=== PATIENT | female | born 1935 | race Caucasian/White ===

== ENCOUNTER 2017-05-05 08:12 | Observation (INO) | payer OTHER ==
[~2017-05-05] VITALS: Ht 160 cm; Wt 59.5 kg
[~2017-05-05 08:12] MED LIST: AMLODIPINE BESYL5 MG PO; CLINORIL200 MG PO; CLONIDINE HCL0.2 MG PO; GLUCOPHAGE500 MG PO; MONOPRIL40 MG PO; NEXIUM40 MG PO; NOVOLOG MI100 UNIT/2 SC; PRAVACHOL40 MG PO; SULINDAC200 MG PO; TYLENOL SO167 MG/5 M PO; XANAX0.25 MG PO; ZOFRAN ODT4 MG PO
[2017-05-05 09:15] LABS: HEMATOCRIT 38.1 % (36.0-46.0); MCH 31.3 PG (29.0-34.0); MCHC 34.6 G/DL (30.0-36.0); MCV 90.3 FL (83-99); MEAN PLAT.VOLUME 9.3 uM^3 (9.5-12.4); PLATELET COUNT 200 K/uL (156-360); RBC DIS.WIDTH-CV 12.9 % (11.8-14.6); RBC DIS.WIDTH-SD 42.4 % (39-53); RED BLOOD COUNT 4.22 M/uL (3.80-5.20)
[2017-05-05 09:27] LABS: CHLORIDE 106 mEq/L (99-109); POTASSIUM 4.1 mEq/L (3.7-5.4); SODIUM 137 mEq/L (136-147)
[2017-05-05 09:29] LABS: GLUCOSE 193 mg/dL (70-99)
[2017-05-05 09:30] LABS: ANION GAP 8 MEQ/L (2-14)
[2017-05-05 09:31] LABS: TOTAL BILIRUBIN 0.7 mg/dL (0.0-1.0)
[2017-05-05 09:32] LABS: ALKALINE PHOSPHATASE 92 IU/L (3-129)
[2017-05-05 09:33] LABS: GFR ESTIMATE (CALCULATED) 45 mL/min/
[2017-05-05 09:34] LABS: UREA NITROGEN (BUN) 21 mg/dL (9-23)
[2017-05-05 09:36] LABS: LIPASE 14 U/L (1.0-51.0)
[2017-05-05 12:27] LABS: ADD MIUA? NO; BILIRUBIN NEGATIVE; BLOOD NEGATIVE; COLOR YELLOW ((YELLOW)); GLUCOSE (STRIP) NEGATIVE; KETONES 20; LEUKOCYTES NEGATIVE; NITRITE NEGATIVE; PROTEIN (STRIP) NEGATIVE; SPECIFIC GRAVITY 1.009 (1.000-1.030); UCUL ADDED? NO; UROBILINOGEN 0.2 MG/DL (0.2-1.0)
[2017-05-05] MEDS ORDERED: ZOFRAN ODT4 MG PO (13:07)
[2017-05-05 15:54] LABS: POINT-OF-CARE METER ID UU13113747
[2017-05-05 19:44] VITALS: BP 187/76
== END 2017-05-05 19:30 | disposition left against medical advice (07) ==
LOC: EME 08:12 → EDOF 16:55 → ENRESERV 16:56 → EDOF 19:30
PROVIDERS: Nurse Practitioner Family
DX: R11.2 Nausea with vomiting, unspecified (principal); K44.9 Diaphragmatic hernia without obstruction or gangrene; E11.9 Type 2 diabetes mellitus without complications; Z79.4 Long term (current) use of insulin; I10 Essential (primary) hypertension; E78.5 Hyperlipidemia, unspecified; M81.0 Age-related osteoporosis without current pathological fracture; K22.2 Esophageal obstruction; F41.9 Anxiety disorder, unspecified; Z87.891 Personal history of nicotine dependence; Z60.2 Problems related to living alone; Z80.3 Family history of malignant neoplasm of breast; Z83.3 Family history of diabetes mellitus
CPT/HCPCS: 74177; 80053; 81003; 82948; 83690; 85027; G0378; J0360; J2405; J2765; J7030

== ENCOUNTER 2017-08-13 07:43 | Observation (INO) | payer OTHER ==
[~2017-08-13] VITALS: Ht 162.6 cm; Wt 56.5 kg
[2017-08-13 08:24] LABS: HEMATOCRIT 42.8 % (36.0-46.0); HEMOGLOBIN 14.8 G/DL (11.9-15.5); MCH 31.3 PG (29.0-34.0); MCHC 34.6 G/DL (30.0-36.0); MCV 90.5 FL (83-99); PLATELET COUNT 234 K/uL (156-360); RBC DIS.WIDTH-SD 42.4 % (39-53); RED BLOOD COUNT 4.73 M/uL (3.80-5.20); WHITE BLOOD COUNT 5.9 K/uL (4.1-10.2)
[2017-08-13 08:35] LABS: CHLORIDE 106 mEq/L (99-109); POTASSIUM 4.2 mEq/L (3.7-5.4); SODIUM 141 mEq/L (136-147)
[2017-08-13 08:36] LABS: GLUCOSE 177 mg/dL (70-99)
[2017-08-13 08:40] LABS: CREATININE 1.3 mg/dL (0.6-1.3); GFR ESTIMATE (CALCULATED) 41 mL/min/
[2017-08-13 08:41] LABS: UREA NITROGEN (BUN) 27 mg/dL (9-23)
[2017-08-13 10:13] LABS: ALBUMIN 4.2 g/dL (3.2-4.8)
[2017-08-13 10:16] LABS: TOTAL PROTEIN 7.1 g/dL (6.4-8.3)
[2017-08-13 10:18] LABS: TOTAL BILIRUBIN 0.8 mg/dL (0.0-1.0)
[2017-08-13 10:19] LABS: ALKALINE PHOSPHATASE 106 IU/L (3-129)
[2017-08-13 10:21] LABS: AST (GOT) 13 IU/L (2-34); DIRECT BILIRUBIN 0.3 mg/dL (0.0-0.3)
[2017-08-13 10:22] LABS: ALT (GPT) 10 IU/L (3-49); LIPASE 16 U/L (1.0-51.0)
[2017-08-13 10:28] LABS: TROP-I INTERPRETATION NEGATIVE; TROPONIN-I < 0.01 ng/mL (0.0-0.30)
[2017-08-13 10:29] LABS: APPEARANCE SL.HAZY ((CLEAR)); BILIRUBIN NEGATIVE; BLOOD SMALL; COLOR YELLOW ((YELLOW)); GLUCOSE (STRIP) 50; KETONES 80; LEUKOCYTES NEGATIVE; NITRITE NEGATIVE; PROTEIN (STRIP) >=500; SPECIFIC GRAVITY 1.022 (1.000-1.030); UROBILINOGEN 0.2 MG/DL (0.2-1.0)
[2017-08-13 10:33] LABS: BACTERIA RARE /HPF; EPITHELIAL CELLS 1+ /HPF; HYALINE CASTS 0-5 /LPF; MUCUS TRACE /LPF; RED BLOOD CELLS 0-5 /HPF (0-5); UCUL ADDED? NO; WHITE BLOOD CELLS 0-5 /HPF (0-5)
[2017-08-13] MEDS ORDERED: SULINDAC200 MG PO (14:53)
[2017-08-13 15:40] VITALS: BP 210/98
[2017-08-13 16:34] VITALS: BP 237/101
[2017-08-13 18:47] VITALS: BP 184/93
[2017-08-13 20:18] VITALS: BP 190/84
[2017-08-13 23:54] VITALS: BP 134/60
[2017-08-14] VITALS (7 sets, daily range): BP systolic 134–186; BP diastolic 58–81
[2017-08-14 06:19] LABS: INTER. NORMALIZED RATIO 1.1
[2017-08-14 06:50] LABS: CHLORIDE 106 MEQ/L (99-109); CREATININE 1.1 MG/DL (0.6-1.3); GFR ESTIMATE (CALCULATED) 50 mL/min/; GLUCOSE 145 mg/dL (70-99); SODIUM 137 MEQ/L (136-147); UREA NITROGEN (BUN) 27 mg/dL (9-23)
[2017-08-15 06:57] VITALS: BP 107/59
[2017-08-15 07:00] VITALS: BP 160/75
[2017-08-15 11:47] VITALS: BP 171/74
== END 2017-08-15 15:14 | disposition home or self-care (01) ==
LOC: EME 07:43 → EDOF 12:53 → 5WEST 12:53 → ENRESERV 12:54 → 5WEST 15:10 → ENPENDDIS 08-15 → 5WEST 08-15 15:14
PROVIDERS: Internal Medicine; Internal Medicine Gastroenterology
PROC: 0DC38ZZ Extirpation of Matter from Lower Esophagus, Via Natural or Artificial Opening Endoscopic (ICD-10-PCS; principal; 2017-08-14)
DX: T18.128A Food in esophagus causing other injury, initial encounter (principal); K22.2 Esophageal obstruction; K44.9 Diaphragmatic hernia without obstruction or gangrene; K21.9 Gastro-esophageal reflux disease without esophagitis; E11.9 Type 2 diabetes mellitus without complications; I10 Essential (primary) hypertension; E78.5 Hyperlipidemia, unspecified; M81.0 Age-related osteoporosis without current pathological fracture; Z80.3 Family history of malignant neoplasm of breast; Z83.3 Family history of diabetes mellitus; Z79.4 Long term (current) use of insulin
CPT/HCPCS: 80048; 80076; 81003; 82948; 83690; 84484; 85027; 85610; 93005; 99281; 99285; C9113; G0378; J0330; J0360; J1650; J1815; J2405; J2765; J7030

== ENCOUNTER 2017-12-02 13:45 | Inpatient (IN) | payer OTHER ==
[~2017-12-02] VITALS: Ht 162.6 cm; Wt 63.5 kg
[2017-12-02 14:23] LABS: BASOPHIL (%) 0.2 % (0-1); EOSINOPHIL (%) 0.1 % (0-5); HEMATOCRIT 37.2 % (36.0-46.0); IMMATURE GRANULOCYTE (%) 0.5 % (0.0-0.7); LYMPHOCYTE (%) 5.8 % (15-42); LYMPHOCYTE COUNT 0.8 K/uL (1.0-2.8); MCH 30.7 PG (29.0-34.0); MCHC 34.9 G/DL (30.0-36.0); MCV 87.9 FL (83-99); MONOCYTE (%) 6.3 % (3-12); MONOCYTE COUNT 0.9 K/uL (0-0.8); NEUTROPHIL (%) 87.1 % (45-76); PLATELET COUNT 224 K/uL (156-360); RBC DIS.WIDTH-CV 12.7 % (11.8-14.6); RBC DIS.WIDTH-SD 40.9 % (39-53); RED BLOOD COUNT 4.23 M/uL (3.80-5.20); WHITE BLOOD COUNT 13.7 K/uL (4.1-10.2)
[2017-12-02 14:32] LABS: CHLORIDE 105 mEq/L (99-109); POTASSIUM 4.2 mEq/L (3.7-5.4); SODIUM 139 mEq/L (136-147)
[2017-12-02 14:34] LABS: GLUCOSE 148 mg/dL (70-99)
[2017-12-02 14:37] LABS: CREATININE 1.2 mg/dL (0.6-1.3); GFR ESTIMATE (CALCULATED) 45 mL/min/
[2017-12-02 14:38] LABS: UREA NITROGEN (BUN) 23 mg/dL (9-23)
[2017-12-02 14:44] LABS: TROP-I INTERPRETATION NEGATIVE; TROPONIN-I < 0.01 ng/mL (0.0-0.30)
[2017-12-02 22:09] LABS: APPEARANCE CLEAR ((CLEAR)); BILIRUBIN NEGATIVE; BLOOD MODERATE; COLOR YELLOW ((YELLOW)); GLUCOSE (STRIP) 50; KETONES 20; LEUKOCYTES NEGATIVE; NITRITE NEGATIVE; PROTEIN (STRIP) 30; SPECIFIC GRAVITY 1.015 (1.000-1.030); UROBILINOGEN 0.2 MG/DL (0.2-1.0)
[2017-12-02 22:16] LABS: BACTERIA RARE /HPF; EPITHELIAL CELLS RARE /HPF; MUCUS TRACE /LPF; UCUL ADDED? NO; WHITE BLOOD CELLS 0-5 /HPF (0-5)
[2017-12-03] VITALS (9 sets, daily range): BP systolic 130–225; BP diastolic 65–96
[2017-12-03 07:09] LABS: HEMATOCRIT 31.3 % (36.0-46.0); MCHC 33.9 G/DL (30.0-36.0); MCV 88.7 FL (83-99); PLATELET COUNT 176 K/uL (156-360); RBC DIS.WIDTH-CV 12.6 % (11.8-14.6); RED BLOOD COUNT 3.53 M/uL (3.80-5.20); WHITE BLOOD COUNT 6.2 K/uL (4.1-10.2)
[2017-12-03 07:14] LABS: HEMOGLOBIN 10.6 G/DL (11.9-15.5)
[2017-12-03 07:16] LABS: CHLORIDE 97 MEQ/L (99-109); GFR ESTIMATE (CALCULATED) 56 mL/min/; POTASSIUM 4.7 MEQ/L (3.7-5.4); UREA NITROGEN (BUN) 20 mg/dL (9-23)
[2017-12-03 07:21] LABS: GLUCOSE 238 mg/dL (70-99); SODIUM 129 MEQ/L (136-147)
[2017-12-04 03:35] VITALS: BP 155/85
[2017-12-04 06:51] LABS: HEMATOCRIT 26.5 % (36.0-46.0); HEMOGLOBIN 9.1 G/DL (11.9-15.5); MCH 30.5 PG (29.0-34.0); MCHC 34.3 G/DL (30.0-36.0); MCV 88.9 FL (83-99); PLATELET COUNT 179 K/uL (156-360); RBC DIS.WIDTH-CV 12.7 % (11.8-14.6); RBC DIS.WIDTH-SD 40.9 % (39-53); RED BLOOD COUNT 2.98 M/uL (3.80-5.20); WHITE BLOOD COUNT 8.9 K/uL (4.1-10.2)
[2017-12-04 07:17] LABS: CHLORIDE 99 MEQ/L (99-109); CREATININE 1.2 MG/DL (0.6-1.3); GFR ESTIMATE (CALCULATED) 45 mL/min/; GLUCOSE 249 mg/dL (70-99); POTASSIUM 5.2 MEQ/L (3.7-5.4); SODIUM 134 MEQ/L (136-147); UREA NITROGEN (BUN) 25 mg/dL (9-23)
[2017-12-04 07:43] VITALS: BP 150/74
[2017-12-04 11:35] VITALS: BP 153/67
[2017-12-04 15:46] VITALS: BP 149/65
[2017-12-04 19:26] VITALS: BP 151/65
[2017-12-04 23:33] VITALS: BP 157/68
[2017-12-05] VITALS (12 sets, daily range): BP systolic 119–176; BP diastolic 49–76
[2017-12-05 06:15] LABS: HEMATOCRIT 19.7 % (36.0-46.0); MCH 30.3 PG (29.0-34.0); MCV 89.1 FL (83-99); PLATELET COUNT 138 K/uL (156-360); RBC DIS.WIDTH-SD 41.8 % (39-53); WHITE BLOOD COUNT 8.1 K/uL (4.1-10.2)
[2017-12-05 06:20] LABS: HEMOGLOBIN 6.7 G/DL (11.9-15.5); RED BLOOD COUNT 2.21 M/uL (3.80-5.20)
[2017-12-05 07:37] LABS: CHLORIDE 101 MEQ/L (99-109); CREATININE 1.3 MG/DL (0.6-1.3); GFR ESTIMATE (CALCULATED) 41 mL/min/; GLUCOSE 163 mg/dL (70-99); SODIUM 133 MEQ/L (136-147); UREA NITROGEN (BUN) 32 mg/dL (9-23)
[2017-12-05 19:12] LABS: STOOL OCCULT BLD 1ST SPECIMEN NEGATIVE
[2017-12-05 20:37] LABS: HEMATOCRIT 27.5 % (36.0-46.0); MCV 85.7 FL (83-99)
[2017-12-05 20:39] LABS: HEMOGLOBIN 9.7 G/DL (11.9-15.5)
[2017-12-06 04:34] VITALS: BP 163/75; BP 173/75
[2017-12-06 06:40] LABS: BASOPHIL (%) 0.1 % (0-1); EOSINOPHIL (%) 0.4 % (0-5); HEMATOCRIT 28.1 % (36.0-46.0); HEMOGLOBIN 9.8 G/DL (11.9-15.5); IMMATURE GRANULOCYTE (%) 0.3 % (0.0-0.7); LYMPHOCYTE (%) 7.4 % (15-42); LYMPHOCYTE COUNT 0.5 K/uL (1.0-2.8); MCH 29.6 PG (29.0-34.0); MCHC 34.9 G/DL (30.0-36.0); MCV 84.9 FL (83-99); MONOCYTE COUNT 0.8 K/uL (0-0.8); NEUTROPHIL (%) 80.8 % (45-76); NEUTROPHIL COUNT 5.7 K/uL (1.8-6.4); NRBC (%) 0.3 /100 WBC (0-0); PLATELET COUNT 129 K/uL (156-360); RBC DIS.WIDTH-CV 14.5 % (11.8-14.6); RBC DIS.WIDTH-SD 44.6 % (39-53)
[2017-12-06 06:48] LABS: RED BLOOD COUNT 3.31 M/uL (3.80-5.20)
[2017-12-06 08:24] LABS: CHLORIDE 99 MEQ/L (99-109); GFR ESTIMATE (CALCULATED) 56 mL/min/; GLUCOSE 185 mg/dL (70-99); POTASSIUM 4.5 MEQ/L (3.7-5.4); SODIUM 131 MEQ/L (136-147); UREA NITROGEN (BUN) 26 mg/dL (9-23)
[2017-12-06 09:02] LABS: TROP-I INTERPRETATION NEGATIVE; TROPONIN-I < 0.01 ng/mL (0.0-0.30)
[2017-12-06 09:23] VITALS: BP 206/88
[2017-12-06 12:19] VITALS: BP 177/74
[2017-12-06 13:13] VITALS: BP 144/68
[2017-12-06 14:14] LABS: TROP-I INTERPRETATION NEGATIVE; TROPONIN-I < 0.01 ng/mL (0.0-0.30)
[2017-12-06 16:38] VITALS: BP 194/75
[2017-12-06 20:23] LABS: TROP-I INTERPRETATION NEGATIVE; TROPONIN-I 0.01 ng/mL (0.0-0.30)
[2017-12-07 06:18] LABS: BASOPHIL (%) 0.1 % (0-1); EOSINOPHIL (%) 0.7 % (0-5); EOSINOPHIL COUNT 0.1 K/uL (0-0.3); HEMATOCRIT 27.8 % (36.0-46.0); HEMOGLOBIN 9.6 G/DL (11.9-15.5); IMMATURE GRANULOCYTE (%) 0.7 % (0.0-0.7); LYMPHOCYTE (%) 6.3 % (15-42); LYMPHOCYTE COUNT 0.4 K/uL (1.0-2.8); MCH 29.6 PG (29.0-34.0); MCHC 34.5 G/DL (30.0-36.0); MCV 85.8 FL (83-99); MONOCYTE (%) 10.6 % (3-12); MONOCYTE COUNT 0.7 K/uL (0-0.8); NEUTROPHIL (%) 81.6 % (45-76); NEUTROPHIL COUNT 5.7 K/uL (1.8-6.4); PLATELET COUNT 144 K/uL (156-360); RBC DIS.WIDTH-CV 14.2 % (11.8-14.6); RED BLOOD COUNT 3.24 M/uL (3.80-5.20)
[2017-12-07 07:35] VITALS: BP 187/90
[2017-12-07 09:14] VITALS: BP 138/78
[2017-12-07 11:13] VITALS: BP 165/69
[2017-12-07 16:12] VITALS: BP 147/72
[2017-12-07 19:44] VITALS: BP 183/78
[2017-12-07 23:22] VITALS: BP 111/53
[2017-12-08 03:51] VITALS: BP 140/66
[2017-12-08 07:31] VITALS: BP 159/78
[2017-12-08 07:32] LABS: TROP-I INTERPRETATION NEGATIVE; TROPONIN-I 0.01 ng/mL (0.0-0.30)
[2017-12-08 08:29] VITALS: BP 192/79
[2017-12-08 09:25] VITALS: BP 157/69
[2017-12-08 11:40] VITALS: BP 146/67
[2017-12-08] MEDS ORDERED: CLONIDINE HCL0.2 MG PO (14:18)
[2017-12-08] MEDS ORDERED: LOPRESSOR50 MG PO (14:19)
[2017-12-08] MEDS ORDERED: BISACODYL5 MG PO (14:23)
[2017-12-08] MEDS ORDERED: DOCUSATE SODIU100 MG PO (14:23)
[2017-12-08] MEDS ORDERED: TRAMADOL HCL50 MG PO (14:24)
[2017-12-08] MEDS ORDERED: OXYCODONE HCL5 MG PO (14:24)
[2017-12-08] MEDS ORDERED: LOVENOX40 MG/0.4 SC (14:27)
[2017-12-08] MEDS ORDERED: ASPIR-TRIN325 M1 PO (14:31)
== END 2017-12-08 16:37 | DRG 481 ==
LOC: EME 13:45 → EDOF 21:28 → 3EAST 21:28 → ENRESERV 21:32 → 3EAST 12-03 00:35
PROVIDERS: Emergency Medicine; Hospitalist; Internal Medicine; Orthopaedic Surgery; Student in an Organized Health Care Education/Training Program
PROC: 0QS734Z Reposition Left Upper Femur with Internal Fixation Device, Percutaneous Approach (ICD-10-PCS; principal; 2017-12-03)
PROC: 30233N1 Transfusion of Nonautologous Red Blood Cells into Peripheral Vein, Percutaneous Approach (ICD-10-PCS; 2017-12-05)
DX: S72.142A Displaced intertrochanteric fracture of left femur, initial encounter for closed fracture (principal); E87.2 Acidosis; D62 Acute posthemorrhagic anemia; I27.20 Pulmonary hypertension, unspecified; E11.9 Type 2 diabetes mellitus without complications; R41.82 Altered mental status, unspecified; T40.605A Adverse effect of unspecified narcotics, initial encounter; I10 Essential (primary) hypertension; D72.829 Elevated white blood cell count, unspecified; R94.31 Abnormal electrocardiogram [ECG] [EKG]; E78.5 Hyperlipidemia, unspecified; K21.9 Gastro-esophageal reflux disease without esophagitis; K44.9 Diaphragmatic hernia without obstruction or gangrene; F41.9 Anxiety disorder, unspecified; M19.90 Unspecified osteoarthritis, unspecified site; W01.0XXA Fall on same level from slipping, tripping and stumbling without subsequent striking against object, initial encounter; Y92.002 Bathroom of unspecified non-institutional (private) residence as the place of occurrence of the external cause; Z79.4 Long term (current) use of insulin; Z85.3 Personal history of malignant neoplasm of breast
CPT/HCPCS: 70450; 71045; 73502; 76000; 80048; 81003; 82272; 82948; 84484; 85014; 85018; 85025; 85027; 86850; 86900; 86901; 86920; 93005; 93306; 97530 GO; 97530 GP; 99281; 99285; C1713; J0690; J1170; J1644; J1815; J2060; J2250; J2270; J2310; J2405; J3010; J7030; J7120; P9016